=== PATIENT | male | born 1930 | race Caucasian/White ===

== ENCOUNTER 2016-08-23 13:19 | Emergency (ER) | payer MEDICARE, OTHER ==
[~2016-08-23] VITALS: Ht 182.9 cm; Wt 113.6 kg
[~2016-08-23 13:19] MED LIST: ACIDOPHILIS PO; AMITRIPTYLINE H25 M1 PO; AMITRIPTYLINE25 MG PO; ASPI325T6 PO; ASPIR-LOW81 MG PO; ASPIRIN 32325 MG/TAB PO; ASPIRIN 81M81 MG/TA2 PO; ATARAX50 MG PO; BENAZEPRIL; BENAZEPRIL40 MG PO; BIAXIN 500MG T500 MG PO; CARAFATE 1GM1 G PO; CARDIZEM CD360 MG PO; CEPHALEXIN500 M1 PO; CLINDAMYCIN300 MG PO; DILTIAZEM180 M1 PO; FERRATE325 MG PO; FLAGYL500 MG PO; FLONASE NASAL S16 GM NS; FUROSEMIDE20 MG PO; GLIPIZIDE10 MG PO; GLIPIZIDE5 M1 PO; GLUCOPHAGE XR500 M1 PO; GLUCOTROL10 MG PO; GOOD NEIGHBOR325 MG PO; HTN MED; HYTRIN 5MG C5 MG/CAP PO; INTESTINEX1 CA1 PO; LASIX 20MG TABL20 MG PO; LASIX 40MG TABL40 MG PO; LOTENSIN40 MG PO; METAMUCIL FIBE1 EACH PO; METAMUCIL0.52 GM PO; MYCOSTATIN100000 U/G TP; NEXIUM 40MG40 MG PO; NORCO 325 MG-51 TAB PO; OLIVE LEAF EXT500 MG PO; PLAVIX 75MG TAB75 MG PO; PREDNISONE20 MG PO; PRILOSEC 20MG20 MG PO; PSYLLIUM HUSK1 CAP PO; SIMVASTATIN20 MG PO; TERAZOSIN5 MG PO; ULTRAM 50MG TAB50 MG PO; UNABLE; VITAMIN A10k PO; XARELTO15 MG PO; XARELTO20 MG PO; ZOCOR 20MG20 MG PO; ZOCOR10 MG PO; [UNRECOGNIZED DRUG - CODE] PO; [UNRECOGNIZED DRUG - OTHER] TOP
[2016-08-23 13:22] VITALS: TEMP 97.4
[2016-08-23 14:01] LABS: BASO % 0.6 % (0.0-2.0); EOS # 0.6 (0.0-0.7); GRAN # 3.8 (1.4-6.5); GRAN % 54.8 % (42.2-75.2); MEAN CELL VOLUME 90 fl (80.0-100.0); MEAN CORPUSCULAR HGB CONC 32 g/dl (33.0-37.0); MEAN PLATELET VOLUME 9.6 fl (7.4-10.4); MONO # 0.5 (0.1-0.6); PLATELET COUNT 240 K/mm3 (130-400); RED BLOOD COUNT 3.86 M/mm3 (4.20-5.60); REDCELL DISTRIBUTION WIDTH-CV 14.1 % (11.5-14.5); WHITE BLOOD COUNT 6.9 K/mm3 (4.8-10.8)
[2016-08-23 14:03] LABS: HEMATOCRIT 34.8 % (42.0-52.0); HEMOGLOBIN 11.2 g/dl (13.5-18.0); MEAN CORPUSCULAR HEMOGLOBIN 29 pg (27.0-31.0)
[2016-08-23 14:08] LABS: ANION GAP 14 mmol/L (7-16); BLOOD UREA NITROGEN 23 mg/dL (9-20); CALCIUM 9.3 mg/dL (8.4-10.2); CARBON DIOXIDE 21 mmol/L (22-30); CHLORIDE 105 mmol/L (98-107); CREATININE, serum 1.59 mg/dL (0.66-1.25); GLUCOSE 234 mg/dL (74-106); POTASSIUM 4.2 mmol/L (3.4-5.0); SODIUM 140 mmol/L (137-145)
[2016-08-23 14:28] LABS: TROPONIN-I < 0.012 ng/mL (0.000-0.034)
[2016-08-23] MEDS ORDERED: ULTRAM 50MG TAB50 MG PO (15:16)
[2016-08-23 15:23] VITALS: BP 169/84; PULSE 64
== END 2016-08-23 15:55 | disposition home or self-care (01) ==
LOC: COL.ER 13:19
PROVIDERS: Emergency Medicine
DX: M25.521 Pain in right elbow (principal); M79.631 Pain in right forearm; M25.561 Pain in right knee; S51.811A Laceration without foreign body of right forearm, initial encounter; S51.011A Laceration without foreign body of right elbow, initial encounter; W01.198A Fall on same level from slipping, tripping and stumbling with subsequent striking against other object, initial encounter; Y92.009 Unspecified place in unspecified non-institutional (private) residence as the place of occurrence of the external cause; R42 Dizziness and giddiness; Z86.73 Personal history of transient ischemic attack (TIA), and cerebral infarction without residual deficits; D64.9 Anemia, unspecified; Z79.02 Long term (current) use of antithrombotics/antiplatelets; Z86.718 Personal history of other venous thrombosis and embolism; N40.0 Benign prostatic hyperplasia without lower urinary tract symptoms; Z86.711 Personal history of pulmonary embolism; F32.9 Major depressive disorder, single episode, unspecified
CPT/HCPCS: J1885; J7030; L1830

== ENCOUNTER 2016-08-27 13:12 | Inpatient (IN) | payer MEDICARE, OTHER ==
[~2016-08-27] VITALS: Ht 188 cm; Wt 127.0 kg
[2016-08-27 14:35] LABS: BASO % 0.3 % (0.0-2.0); EOS # 0.4 (0.0-0.7); EOS % 3.6 % (0-4.0); GRAN # 8.5 (1.4-6.5); GRAN % 75.5 % (42.2-75.2); LYMPH # 1.5 (1.2-3.4); LYMPH % 13.5 % (20.0-51.0); MEAN CELL VOLUME 91 fl (80.0-100.0); MEAN CORPUSCULAR HGB CONC 32 g/dl (33.0-37.0); MEAN PLATELET VOLUME 10.3 fl (7.4-10.4); MONO # 0.7 (0.1-0.6); MONO % 6.5 % (1.7-9.3); PLATELET COUNT 257 K/mm3 (130-400); RED BLOOD COUNT 3.34 M/mm3 (4.20-5.60); REDCELL DISTRIBUTION WIDTH-CV 14.7 % (11.5-14.5); WHITE BLOOD COUNT 11.2 K/mm3 (4.8-10.8)
[2016-08-27 14:37] LABS: HEMATOCRIT 30.4 % (42.0-52.0); HEMOGLOBIN 9.8 g/dl (13.5-18.0); MEAN CORPUSCULAR HEMOGLOBIN 29 pg (27.0-31.0)
[2016-08-27 14:39] LABS: INR 1.3 (0.8-3.0); PROTHROMBIN TIME 14.2 SECONDS (9.7-12.8)
[2016-08-27 14:41] LABS: PARTIAL THROMBOPLASTIN TIME 36.6 SECONDS (26.0-37.0)
[2016-08-27 14:52] LABS: PH 5 (5-8); SQUAMOUS EPITHELIAL 0-2 /hpf; URINE APPEARANCE Clear; URINE BACTERIA Rare /hpf; URINE BILIRUBIN Negative (NEGATIVE); URINE BLOOD Negative (NEGATIVE); URINE COLOR Yellow; URINE GLUCOSE Negative (NEGATIVE); URINE KETONE Negative (NEGATIVE); URINE UROBILINOGEN Negative (NEGATIVE)
[2016-08-27 14:53] LABS: URINE WBC >50 /hpf
[2016-08-27 14:55] LABS: ADJUSTED CALCIUM 9.8 mg/dL (8.4-10.2); ALBUMIN 3.4 gm/dL (3.5-5.0); BILIRUBIN,TOTAL 0.7 mg/dL (0.0-1.0); CALCIUM 9.3 mg/dL (8.4-10.2); CREATININE, serum 3.34 mg/dL (0.66-1.25); POTASSIUM 4.6 mmol/L (3.4-5.0); TOTAL PROTEIN 6.8 gm/dL (6.4-8.2)
[2016-08-27 15:02] LABS: TROPONIN-I 0.029 ng/mL (0.000-0.034)
[2016-08-27 15:09] LABS: C-REACTIVE PROTEIN 18.7 mg/dL (0.0-0.9)
[2016-08-27 17:22] VITALS: BP 140/56; PULSE 87
[2016-08-27 22:15] VITALS: BP 97/58; PULSE 84; TEMP 98.4
[2016-08-28 02:06] VITALS: BP 115/44; PULSE 85; TEMP 98.4
[2016-08-28] MEDS ORDERED: GLUCOPHAGE500 MG/TAB PO ×2 (03:01→03:02)
[2016-08-28] MEDS ORDERED: HYTRIN10 M1 PO (03:01)
[2016-08-28] MEDS ORDERED: LOTENSIN40 MG PO (03:06)
[2016-08-28] MEDS ORDERED: IRON325 MG PO (03:07)
[2016-08-28 04:37] VITALS: BP 125/45; PULSE 76; TEMP 97.9
[2016-08-28 07:58] LABS: BASO % 0.3 % (0.0-2.0); EOS # 0.5 (0.0-0.7); EOS % 4.7 % (0-4.0); GRAN # 6.6 (1.4-6.5); GRAN % 66.5 % (42.2-75.2); LYMPH # 1.9 (1.2-3.4); LYMPH % 19.3 % (20.0-51.0); MEAN CELL VOLUME 93 fl (80.0-100.0); MEAN CORPUSCULAR HGB CONC 32 g/dl (33.0-37.0); MEAN PLATELET VOLUME 10.5 fl (7.4-10.4); MONO # 0.9 (0.1-0.6); MONO % 8.8 % (1.7-9.3); PLATELET COUNT 257 K/mm3 (130-400); RED BLOOD COUNT 3.06 M/mm3 (4.20-5.60); REDCELL DISTRIBUTION WIDTH-CV 14.6 % (11.5-14.5); WHITE BLOOD COUNT 9.9 K/mm3 (4.8-10.8)
[2016-08-28 07:59] LABS: HEMATOCRIT 28.4 % (42.0-52.0); MEAN CORPUSCULAR HEMOGLOBIN 29 pg (27.0-31.0)
[2016-08-28 08:14] LABS: CALCIUM 8.7 mg/dL (8.4-10.2); CREATININE, serum 2.48 mg/dL (0.66-1.25); POTASSIUM 4.1 mmol/L (3.4-5.0)
[2016-08-28 09:36] VITALS: BP 102/42; BP 116/26; PULSE 82; TEMP 98.5
[2016-08-28 13:47] VITALS: BP 127/42; PULSE 66; TEMP 97.8
[2016-08-28 17:53] VITALS: BP 103/85; PULSE 95; TEMP 97.8
[2016-08-28 18:42] LABS: TROPONIN-I 0.045 ng/mL (0.000-0.034)
[2016-08-28 20:39] VITALS: BP 141/55; PULSE 83; TEMP 99.3
[2016-08-28 23:29] LABS: INR 1.3 (0.8-3.0); PROTHROMBIN TIME 14.2 SECONDS (9.7-12.8)
[2016-08-28 23:32] LABS: PARTIAL THROMBOPLASTIN TIME 31.9 SECONDS (26.0-37.0)
[2016-08-29] VITALS (292 sets, daily range): BP systolic 105–145; BP diastolic 41–84; PULSE 73–129; TEMP 97.2–99.4; O2SAT 69–100
[2016-08-29 06:22] LABS: BASO # 0.1 (0.0-0.2); BASO % 0.5 % (0.0-2.0); EOS # 0.3 (0.0-0.7); EOS % 3.6 % (0-4.0); GRAN # 6.3 (1.4-6.5); GRAN % 68.3 % (42.2-75.2); LYMPH # 1.7 (1.2-3.4); LYMPH % 18.4 % (20.0-51.0); MEAN CELL VOLUME 92 fl (80.0-100.0); MEAN CORPUSCULAR HGB CONC 32 g/dl (33.0-37.0); MEAN PLATELET VOLUME 10.2 fl (7.4-10.4); MONO # 0.8 (0.1-0.6); MONO % 8.5 % (1.7-9.3); PLATELET COUNT 254 K/mm3 (130-400); RED BLOOD COUNT 3.06 M/mm3 (4.20-5.60); REDCELL DISTRIBUTION WIDTH-CV 14.5 % (11.5-14.5); WHITE BLOOD COUNT 9.2 K/mm3 (4.8-10.8)
[2016-08-29 06:26] LABS: HEMATOCRIT 28.1 % (42.0-52.0); HEMOGLOBIN 8.9 g/dl (13.5-18.0); MEAN CORPUSCULAR HEMOGLOBIN 29 pg (27.0-31.0)
[2016-08-29 06:42] LABS: CALCIUM 9.1 mg/dL (8.4-10.2); CREATININE, serum 1.89 mg/dL (0.66-1.25); POTASSIUM 4.4 mmol/L (3.4-5.0)
[2016-08-29 17:57] LABS: ADJUSTED CALCIUM 9.9 mg/dL (8.4-10.2); ALBUMIN 2.6 gm/dL (3.5-5.0); BILIRUBIN,TOTAL 0.5 mg/dL (0.0-1.0); CALCIUM 8.8 mg/dL (8.4-10.2); CREATININE, serum 1.63 mg/dL (0.66-1.25); MAGNESIUM 1.9 mg/dL (1.6-2.3); PHOSPHOROUS 3.4 mg/dL (2.5-4.5); POTASSIUM 4.4 mmol/L (3.4-5.0); TOTAL PROTEIN 5.7 gm/dL (6.4-8.2)
[2016-08-30] VITALS (788 sets, daily range): BP systolic 112–175; BP diastolic 41–69; PULSE 65–94; TEMP 97.2–98.9; O2SAT 62–100
[2016-08-30 05:59] LABS: MEAN CELL VOLUME 93 fl (80.0-100.0); MEAN CORPUSCULAR HGB CONC 31 g/dl (33.0-37.0); MEAN PLATELET VOLUME 10.2 fl (7.4-10.4); PLATELET COUNT 254 K/mm3 (130-400); RED BLOOD COUNT 2.92 M/mm3 (4.20-5.60); REDCELL DISTRIBUTION WIDTH-CV 14.3 % (11.5-14.5); WHITE BLOOD COUNT 9.2 K/mm3 (4.8-10.8)
[2016-08-30 06:02] LABS: HEMATOCRIT 27.2 % (42.0-52.0); HEMOGLOBIN 8.5 g/dl (13.5-18.0); MEAN CORPUSCULAR HEMOGLOBIN 29 pg (27.0-31.0)
[2016-08-30 06:11] LABS: CALCIUM 8.9 mg/dL (8.4-10.2); CREATININE, serum 1.56 mg/dL (0.66-1.25); POTASSIUM 4.1 mmol/L (3.4-5.0)
[2016-08-30 14:48] LABS: INR 1.3 (0.8-3.0); PROTHROMBIN TIME 14.4 SECONDS (9.7-12.8)
[2016-08-31] VITALS (11 sets, daily range): BP systolic 116–144; BP diastolic 38–61; PULSE 63–108; TEMP 97.3–98.9
[2016-08-31 06:39] LABS: BASO % 0.4 % (0.0-2.0); EOS # 0.4 (0.0-0.7); EOS % 4.3 % (0-4.0); GRAN # 5.6 (1.4-6.5); GRAN % 66.7 % (42.2-75.2); LYMPH # 1.6 (1.2-3.4); LYMPH % 18.8 % (20.0-51.0); MEAN CELL VOLUME 92 fl (80.0-100.0); MEAN CORPUSCULAR HGB CONC 31 g/dl (33.0-37.0); MEAN PLATELET VOLUME 9.8 fl (7.4-10.4); MONO # 0.8 (0.1-0.6); MONO % 9.1 % (1.7-9.3); PLATELET COUNT 238 K/mm3 (130-400); RED BLOOD COUNT 2.56 M/mm3 (4.20-5.60); REDCELL DISTRIBUTION WIDTH-CV 14.5 % (11.5-14.5); WHITE BLOOD COUNT 8.4 K/mm3 (4.8-10.8)
[2016-08-31 06:44] LABS: HEMATOCRIT 23.6 % (42.0-52.0); HEMOGLOBIN 7.4 g/dl (13.5-18.0); MEAN CORPUSCULAR HEMOGLOBIN 29 pg (27.0-31.0)
[2016-08-31 06:45] LABS: INR 1.4 (0.8-3.0); PROTHROMBIN TIME 15.7 SECONDS (9.7-12.8)
[2016-08-31 06:50] LABS: CALCIUM 8.7 mg/dL (8.4-10.2); CREATININE, serum 1.63 mg/dL (0.66-1.25)
[2016-08-31 20:42] LABS: HEMATOCRIT 25.5 % (42.0-52.0); HEMOGLOBIN 8.3 g/dl (13.5-18.0)
[2016-09-01 00:14] VITALS: BP 114/70; PULSE 64; TEMP 98.3
[2016-09-01 04:07] VITALS: BP 124/39; PULSE 62; TEMP 98
[2016-09-01] MEDS ORDERED: FERROUS SU325 MG/TAB PO (07:44)
[2016-09-01] MEDS ORDERED: ASPI325T6 PO (07:46)
[2016-09-01] MEDS ORDERED: SENOKOT S 50 MG1 TAB PO (07:48)
[2016-09-01] MEDS ORDERED: MILK OF MA400 MG/52 PO (07:49)
[2016-09-01] MEDS ORDERED: DULCOLAX S10 MG/SUPP RC (07:49)
[2016-09-01] MEDS ORDERED: NORCO 325 MG-51 TAB PO (07:50)
[2016-09-01] MEDS ORDERED: ULTRAM 50MG TAB50 MG PO (07:50)
[2016-09-01 08:03] LABS: BASO % 0.4 % (0.0-2.0); EOS # 0.8 (0.0-0.7); EOS % 8.1 % (0-4.0); GRAN # 6.4 (1.4-6.5); GRAN % 61.4 % (42.2-75.2); LYMPH # 2.1 (1.2-3.4); LYMPH % 20.2 % (20.0-51.0); MEAN CELL VOLUME 91 fl (80.0-100.0); MEAN CORPUSCULAR HGB CONC 31 g/dl (33.0-37.0); MEAN PLATELET VOLUME 10.1 fl (7.4-10.4); MONO # 0.9 (0.1-0.6); MONO % 9.1 % (1.7-9.3); PLATELET COUNT 269 K/mm3 (130-400); RED BLOOD COUNT 2.96 M/mm3 (4.20-5.60); REDCELL DISTRIBUTION WIDTH-CV 15.9 % (11.5-14.5); WHITE BLOOD COUNT 10.4 K/mm3 (4.8-10.8)
[2016-09-01 08:05] LABS: INR 1.3 (0.8-3.0); PROTHROMBIN TIME 14.6 SECONDS (9.7-12.8)
[2016-09-01 08:10] LABS: HEMOGLOBIN 8.4 g/dl (13.5-18.0); MEAN CORPUSCULAR HEMOGLOBIN 28 pg (27.0-31.0)
[2016-09-01 08:13] LABS: CALCIUM 8.9 mg/dL (8.4-10.2); CREATININE, serum 1.73 mg/dL (0.66-1.25); POTASSIUM 3.5 mmol/L (3.4-5.0)
[2016-09-01 10:25] VITALS: BP 125/93; PULSE 73; TEMP 98.5
[2016-09-01 13:04] VITALS: BP 125/93; PULSE 73; TEMP 98.5
== END 2016-09-01 13:15 | DRG 480 ==
LOC: COL.ER 13:12 → SURG 16:30 → ICU 08-29 17:22 → SURG 08-30 15:13
PROVIDERS: Emergency Medicine; Family Medicine; Internal Medicine Interventional Cardiology; Orthopaedic Surgery Sports Medicine; Physician Assistant
PROC: 0QS606Z Reposition Right Upper Femur with Intramedullary Internal Fixation Device, Open Approach (ICD-10-PCS; principal; 2016-08-29 14:30)
DX: S72.141A Displaced intertrochanteric fracture of right femur, initial encounter for closed fracture (principal); I50.33 Acute on chronic diastolic (congestive) heart failure; A41.51 Sepsis due to Escherichia coli [E. coli]; N17.9 Acute kidney failure, unspecified; N39.0 Urinary tract infection, site not specified; W18.30XA Fall on same level, unspecified, initial encounter; E11.9 Type 2 diabetes mellitus without complications; I11.0 Hypertensive heart disease with heart failure; B96.20 Unspecified Escherichia coli [E. coli] as the cause of diseases classified elsewhere; Z86.711 Personal history of pulmonary embolism; Z79.01 Long term (current) use of anticoagulants; I87.8 Other specified disorders of veins
CPT/HCPCS: 99223-AI; 99233-AI; 99239; A9284; A9502; C1713; J0690; J0696; J1644; J1650; J1815; J1940; J2001; J2250; J2270; J2405; J3010; J7030; P9016

== ENCOUNTER 2016-09-03 09:09 | Emergency (ER) | payer MEDICARE, OTHER ==
[~2016-09-03] VITALS: Ht 193 cm; Wt 124.5 kg
[~2016-09-03 09:09] MED LIST changes: +DULCOLAX S10 MG/SUPP RC; +FERROUS SU325 MG/TAB PO; +GLUCOPHAGE500 MG/TAB PO; +HYTRIN10 M1 PO; +IRON325 MG PO; +MILK OF MA400 MG/52 PO; +SENOKOT S 50 MG1 TAB PO
[2016-09-03 09:31] LABS: ARTERIAL BLD GAS O2 SATURATION 93.2 % (92-100); ARTERIAL BLD GAS TCO2 CT 19.2; ARTERIAL BLOOD GAS BASE EXCESS -5.8 (-2-2); ARTERIAL BLOOD GAS HCO3 18.3 meq/L (22-26); ARTERIAL BLOOD GAS PHT 7.39 C (7.35-7.45); ARTERIAL BLOOD GAS PO2 73.2 mmHg (80-100); ARTERIAL BLOOD GAS PO2T 73.2 (80-100); ARTERIAL BLOOD GAS pH 7.39 (7.35-7.45); OXYHEMOGLOBIN 91.9 %
[2016-09-03 09:33] LABS: ALLEN TEST YES; ALLENS TEST RESULT PASS; ATS? YES
[2016-09-03 09:45] LABS: BASO # 0.1 (0.0-0.2); BASO % 0.4 % (0.0-2.0); EOS # 0.9 (0.0-0.7); EOS % 7.6 % (0-4.0); GRAN # 7.9 (1.4-6.5); GRAN % 65.5 % (42.2-75.2); HEMATOCRIT 28.5 % (42.0-52.0); HEMOGLOBIN 9.2 g/dl (13.5-18.0); LYMPH # 2.2 (1.2-3.4); LYMPH % 18.5 % (20.0-51.0); MEAN CELL VOLUME 90 fl (80.0-100.0); MEAN CORPUSCULAR HEMOGLOBIN 29 pg (27.0-31.0); MEAN CORPUSCULAR HGB CONC 32 g/dl (33.0-37.0); MONO # 0.9 (0.1-0.6); MONO % 7.1 % (1.7-9.3); PLATELET COUNT 369 K/mm3 (130-400); RED BLOOD COUNT 3.16 M/mm3 (4.20-5.60); REDCELL DISTRIBUTION WIDTH-CV 15.3 % (11.5-14.5); WHITE BLOOD COUNT 12.1 K/mm3 (4.8-10.8)
[2016-09-03 09:46] LABS: INR 1.3 (0.8-3.0)
[2016-09-03 09:49] LABS: ADJUSTED CALCIUM 10.1 mg/dL (8.4-10.2); ALBUMIN 2.8 gm/dL (3.5-5.0); BILIRUBIN,TOTAL 0.6 mg/dL (0.0-1.0); CALCIUM 9.1 mg/dL (8.4-10.2); CREATININE, serum 1.5 mg/dL (0.66-1.25); PARTIAL THROMBOPLASTIN TIME 30.6 SECONDS (26.0-37.0); POTASSIUM 3.3 mmol/L (3.4-5.0); TOTAL PROTEIN 6.2 gm/dL (6.4-8.2)
[2016-09-03 10:07] LABS: TROPONIN-I 0.041 ng/mL (0.000-0.034)
[2016-09-03 13:54] VITALS: BP 119/77; PULSE 74
== END 2016-09-03 11:57 | disposition home or self-care (01) ==
LOC: COL.ER 09:09
PROVIDERS: Family Medicine
DX: R06.00 Dyspnea, unspecified (principal); I10 Essential (primary) hypertension; Z86.718 Personal history of other venous thrombosis and embolism; Z86.711 Personal history of pulmonary embolism; Z87.891 Personal history of nicotine dependence; Z79.02 Long term (current) use of antithrombotics/antiplatelets

== ENCOUNTER → 2016-09-09 | Outpatient (CLI) | payer MEDICARE, OTHER | LOC: COL.RAD 10:55 | DX: T17.900A Unspecified foreign body in respiratory tract, part unspecified causing asphyxiation, initial encounter (principal); R13.10 Dysphagia, unspecified; G31.9 Degenerative disease of nervous system, unspecified; J34.89 Other specified disorders of nose and nasal sinuses | CPT/HCPCS: G8996-GN; G8997-GN; G8998-GN ==

== ENCOUNTER → 2016-09-19 | Outpatient (CLI) | payer MEDICARE, OTHER | LOC: COL.RAD 15:30 | DX: M48.07 Spinal stenosis, lumbosacral region (principal); W19.XXXA Unspecified fall, initial encounter; M47.816 Spondylosis without myelopathy or radiculopathy, lumbar region; M43.8X4 Other specified deforming dorsopathies, thoracic region ==

== ENCOUNTER → 2016-10-10 | Outpatient (CLI) | payer MEDICARE, OTHER | LOC: COL.RAD 10:24 | DX: Z09 Encounter for follow-up examination after completed treatment for conditions other than malignant neoplasm (principal); S72.91XD Unspecified fracture of right femur, subsequent encounter for closed fracture with routine healing; Z98.1 Arthrodesis status ==

== ENCOUNTER → 2016-10-11 | Outpatient (REF) ==
[2016-10-11 13:46] LABS: PH 5 (5-8); SQUAMOUS EPITHELIAL None Seen /hpf; URINE APPEARANCE Hazy; URINE BACTERIA Occasional /hpf; URINE BILIRUBIN Negative (NEGATIVE); URINE BLOOD Negative (NEGATIVE); URINE COLOR Yellow; URINE GLUCOSE Negative (NEGATIVE); URINE KETONE Negative (NEGATIVE); URINE RBC 0-2 /hpf; URINE WBC None Seen /hpf
== END ==
LOC: ZCOL.LAB 13:19
PROVIDERS: Family Medicine
DX: Z01.89 Encounter for other specified special examinations (principal)

== ENCOUNTER → 2017-01-20 | Outpatient (CLI) | payer MEDICARE, OTHER ==
[~2017-01-20] MED LIST changes: +CELEBREX 200MG200 MG PO; +IPRATROPIUM BROM3 M1 IH; +LEVAQUIN 750MG750 M1 PO; +LIDODERM 5% PATC1 EA TD; +OMNICEF 300MG300 MG PO; +TYLENOL 325MG325 MG PO
== END ==
LOC: COL.RAD 14:40
DX: R13.12 Dysphagia, oropharyngeal phase (principal); J18.8 Other pneumonia, unspecified organism
CPT/HCPCS: G8996-GN; G8997-GN; G8998-GN

== ENCOUNTER → 2017-01-27 | Outpatient (CLI) | payer MEDICARE, OTHER | LOC: COL.RAD 10:46 | DX: J18.1 Lobar pneumonia, unspecified organism (principal); R13.12 Dysphagia, oropharyngeal phase ==

== ENCOUNTER 2019-02-28 12:40 | Inpatient (IN) | payer MEDICARE, OTHER ==
[~2019-02-28] VITALS: Wt 112.5 kg
[2019-02-28 13:27] LABS: BASO # 0.1 (0.0-0.2); BASO % 0.3 % (0.0-2.0); EOS % 0.1 % (0-4.0); GRAN # 16.4 (1.4-6.5); GRAN % 91.6 % (42.2-75.2); HEMATOCRIT 37.8 % (42.0-52.0); HEMOGLOBIN 11.8 g/dl (13.5-18.0); LYMPH # 0.4 (1.2-3.4); LYMPH % 2.2 % (20.0-51.0); MEAN CELL VOLUME 95 fl (80.0-100.0); MEAN CORPUSCULAR HEMOGLOBIN 30 pg (27.0-31.0); MEAN CORPUSCULAR HGB CONC 31 g/dl (33.0-37.0); MEAN PLATELET VOLUME 9.7 fl (7.4-10.4); MONO # 0.9 (0.1-0.6); MONO % 4.9 % (1.7-9.3); PLATELET COUNT 247 K/mm3 (130-400); RED BLOOD COUNT 3.97 M/mm3 (4.20-5.60); REDCELL DISTRIBUTION WIDTH-CV 14.1 % (11.5-14.5)
[2019-02-28 13:36] LABS: INR 1.1 (0.8-3.0); PROTHROMBIN TIME 12.7 SECONDS (9.7-12.8)
[2019-02-28 13:54] LABS: ALBUMIN 4.1 gm/dL (3.5-5.0); BILIRUBIN,TOTAL 0.3 mg/dL (0.0-1.0); C-REACTIVE PROTEIN 3.7 mg/dL (0.0-0.9); CALCIUM 9.1 mg/dL (8.4-10.2); CREATININE, serum 2.41 (0.66-1.25); POTASSIUM 5.2 mmol/L (3.4-5.0); TOTAL PROTEIN 7.7 gm/dL (6.4-8.2)
[2019-02-28 14:03] LABS: TROPONIN-I 0.032 ng/mL (0.000-0.035)
[2019-02-28] MEDS ORDERED: TYLENOL 8 HR PO (14:36)
[2019-02-28] MEDS ORDERED: LOTENSIN40 MG PO (14:38)
[2019-02-28] MEDS ORDERED: BENEFIBER PO (14:41)
[2019-02-28] MEDS ORDERED: HYGROTON 2525 MG/TAB PO (14:43)
[2019-02-28] MEDS ORDERED: DIGESTIVE PROB1 EACH PO (14:50)
[2019-02-28 16:17] LABS: COLLECTION METHOD CLEAN CATCH
[2019-02-28 16:27] LABS: MUCOUS Present /lpf; PH 5 (5-8); SQUAMOUS EPITHELIAL 0-2 /hpf; URINE APPEARANCE Cloudy; URINE BACTERIA Rare /hpf; URINE BILIRUBIN Negative (NEGATIVE); URINE BLOOD 3+ (NEGATIVE); URINE COLOR Yellow; URINE GLUCOSE Negative (NEGATIVE); URINE KETONE Trace (NEGATIVE); URINE LEUKOCYTE ESTERASE 3+ (NEGATIVE); URINE NITRATE Negative (NEGATIVE); URINE PROTEIN(semi-quant) 1+ (NEGATIVE); URINE RBC >50 /hpf; URINE UROBILINOGEN Negative (NEGATIVE)
[2019-02-28 17:55] VITALS: BP 155/49; PULSE 99; TEMP 101.6
[2019-02-28] MEDS ORDERED: COLACE 100100 MG/CAP PO (17:58)
--- NOTE | 2019-02-28 18:00 | NUR ---
PT ADMITTED TO FLOOR AT THIS TIME. ASSISTED TO BED. HAD NOTED NAUSEA AND EMISIS, OBTIANTED PRN ORDER FROM . WILL ADMINSITER UPON MED VARIFICATION
[2019-02-28] MEDS ORDERED: APRESOLINE 25MG25 MG PO (18:02)
[2019-02-28] MEDS ORDERED: ATROVENT NASAL15 ML NS (18:04)
[2019-02-28] MEDS ORDERED: ATROVENT I0.2 MG/1 M IH (18:05)
[2019-02-28] MEDS ORDERED: JANUVIA50 MG PO (18:06)
[2019-02-28] MEDS ORDERED: TIROSINT50 MC1 PO (18:07)
[2019-02-28] MEDS ORDERED: IMODIUM 2MG CAPS2 MG PO (18:08)
[2019-02-28] MEDS ORDERED: MELATONIN5 M1 SL (18:09)
[2019-02-28] MEDS ORDERED: CLARITIN 1010 MG/TAB PO (18:09)
[2019-02-28] MEDS ORDERED: GOOD SENSE400 MG/5 M PO (18:11)
[2019-02-28] MEDS ORDERED: SINGULAIR 110 MG/TAB PO (18:12)
[2019-02-28] MEDS ORDERED: PATANOL OPHTHALM5 ML OU (18:14)
[2019-02-28] MEDS ORDERED: PRILOTC PO (18:15)
[2019-02-28] MEDS ORDERED: FLOMAX 0.40.4 MG/CAP PO (18:16)
[2019-02-28] MEDS ORDERED: HYTRIN10 M1 PO (18:17)
[2019-02-28] MEDS ORDERED: VITAMIN A10k PO (18:18)
[2019-02-28] MEDS ORDERED: SENOKOT S 50 MG1 TAB PO (18:27)
--- NOTE | 2019-02-28 18:40 | NUR ---
ZOFRAN ADMINISTERED AT THIS TIME, EMISIS HAS RESOLVED AT THIS TIME. MEDICAL RECORD CLERK CALLED THIS NURSE ABOUT PT CHANGING FROM [facility] TO A-FIB. WILL CALL PROVIDER. PT DOESNT VOICE THAT HE FEELS ANY CHANGES, VITALS WILL BE OBTAINED WELL
[2019-02-28] MEDS ORDERED: ACIDOPHILIS PO (18:54)
[2019-02-28] MEDS ORDERED: SALINE 45 ML45 ML NS (18:56)
[2019-02-28 19:15] VITALS: BP 108/78; PULSE 94; TEMP 100.4
[2019-02-28 23:26] VITALS: BP 135/60; PULSE 91; TEMP 100.7
[2019-03-01 03:54] VITALS: BP 112/51; PULSE 119; TEMP 100.6
[2019-03-01 05:56] LABS: BASO % 0.2 % (0.0-2.0); GRAN # 15.1 (1.4-6.5); GRAN % 87.6 % (42.2-75.2); LYMPH # 1.1 (1.2-3.4); LYMPH % 6.3 % (20.0-51.0); MEAN CELL VOLUME 96 fl (80.0-100.0); MEAN CORPUSCULAR HGB CONC 31 g/dl (33.0-37.0); MEAN PLATELET VOLUME 9.7 fl (7.4-10.4); MONO # 0.9 (0.1-0.6); MONO % 5.4 % (1.7-9.3); PLATELET COUNT 201 K/mm3 (130-400); RED BLOOD COUNT 3.34 M/mm3 (4.20-5.60); REDCELL DISTRIBUTION WIDTH-CV 14.5 % (11.5-14.5)
[2019-03-01 05:58] LABS: HEMATOCRIT 32.2 % (42.0-52.0); HEMOGLOBIN 9.9 g/dl (13.5-18.0); INR 1.5 (0.8-3.0); MEAN CORPUSCULAR HEMOGLOBIN 30 pg (27.0-31.0); PROTHROMBIN TIME 17.8 SECONDS (9.7-12.8)
[2019-03-01 06:06] LABS: ALBUMIN 3.4 gm/dL (3.5-5.0); BILIRUBIN,TOTAL 0.3 mg/dL (0.0-1.0); CALCIUM 8.8 mg/dL (8.4-10.2); CREATININE, serum 2.38 (0.66-1.25); POTASSIUM 5.2 mmol/L (3.4-5.0); TOTAL PROTEIN 6.6 gm/dL (6.4-8.2)
[2019-03-01 06:20] LABS: TROPONIN-I 0.075 ng/mL (0.000-0.035)
--- NOTE | 2019-03-01 07:33 | NUR ---
HepXa level 0.53, No rate/dose change, recheck next level at 1200
[2019-03-01 08:39] VITALS: BP 142/45; PULSE 97; TEMP 99.6
--- NOTE | 2019-03-01 10:16 | NUR ---
Talked with son Doyle Fuentes by phone. His phone number is [phone]. I also left a message for Brandon Fuentes at [phone]. Doyle did advise me that Yolie Fuentes is no longer DPOA-HC as they have been for 2 years and she is not involved in his father's care anymore. Doyle reports that "UTI'S make Dad not aware of anything for a while but historically, he does come out of it and is functioning fairly well at [facility] until now. He is aware of his father's health situation but wants to provide supportive care to him to allow recovery is possible--which he feels is realistic. Either Doyle or Brandon can be contacted for medical decisions and per Doyle, both are thinking along the same lines for plan of care. I hilaria share this conversation with Dr Cornejo as he has just seen the patient and is supportive of their decision as well.
--- NOTE | 2019-03-01 10:29 | NUR ---
GERALDO attended clinical rounds. The patient is to have an ultrasound of his heart today. A palliative care consult was ordered. GERALDO then attempted to contact the patient's son, Doyle ([phone]), to discuss discharge plan. GERALDO left him a voicemail. The patient resides at [facility] for long-term care. GERALDO contacted Rosetta at [facility] to update and requested the patient's DPOA-HC and DNR. Rosetta faxed those documents to medical. GERALDO placed the copies in the patient's chart. The documents state that her son, Doyle, and Yolie are his DPOA-HC and the alternate is the patient's other son, Brandon (ph#[phone]). GERALDO contacted Yolie. Yolie reports that her and Doyle has been for two years. GERALDO then attempted to contact Brandon. GERALDO left him a voicemail. GERALDO then collaborated with Palliative Care Nurse, Magdalena, Magdalena was able to get a hold of the patient's son, Doyle. Doyle reports that they are not ready for hospice care and want everything done. GERALDO contacted Doyle again. Doyle reports that the plan is for the patient to return back to [facility]. GERALDO explained the Patient Choice Form to Doyle. Doyle gave GERALDO his verbal consent. Doyle reports that his brother should have an updated DPOA-HC that does not have Yolie on it. Doyle reports that he will ask his brother to fax it to the medical unit. GERALDO faxed updates to Rosetta at [facility] and will continue to follow.
[2019-03-01 12:11] VITALS: BP 137/65; PULSE 68; TEMP 98.5
--- NOTE | 2019-03-01 12:30 | NUR ---
HepXa 0.61 / no rate or dose change, continue TRA 20ml/hr, next level check 03/02/19 @ 0500
[2019-03-01 13:03] LABS: MAGNESIUM 2.2 mg/dL (1.6-2.3)
[2019-03-01 13:17] LABS: TROPONIN-I 0.067 ng/mL (0.000-0.035)
[2019-03-01 19:17] VITALS: BP 134/93; PULSE 71; TEMP 98.2
--- NOTE | 2019-03-01 21:00 | NUR ---
Patient awake watching TV. Vital signs stable, two IV sites in the left forearm, both clean, dry and intact. Antibiotics given as ordered. No complaints of pain.
[2019-03-01 23:05] VITALS: BP 117/88; PULSE 83; TEMP 98.5
[2019-03-02 04:00] VITALS: BP 125/66; PULSE 60; TEMP 984
[2019-03-02 06:16] LABS: BASO % 0.3 % (0.0-2.0); EOS # 0.3 (0.0-0.7); EOS % 2.5 % (0-4.0); GRAN # 8.6 (1.4-6.5); GRAN % 73.1 % (42.2-75.2); LYMPH # 1.8 (1.2-3.4); LYMPH % 15.4 % (20.0-51.0); MEAN CELL VOLUME 96 fl (80.0-100.0); MEAN CORPUSCULAR HGB CONC 31 g/dl (33.0-37.0); MEAN PLATELET VOLUME 9.9 fl (7.4-10.4); MONO # 0.9 (0.1-0.6); MONO % 7.7 % (1.7-9.3); PLATELET COUNT 183 K/mm3 (130-400); RED BLOOD COUNT 3.17 M/mm3 (4.20-5.60); REDCELL DISTRIBUTION WIDTH-CV 14.6 % (11.5-14.5)
[2019-03-02 06:22] LABS: HEMATOCRIT 30.4 % (42.0-52.0); HEMOGLOBIN 9.4 g/dl (13.5-18.0); MEAN CORPUSCULAR HEMOGLOBIN 30 pg (27.0-31.0)
[2019-03-02 06:28] LABS: INR 1.1 (0.8-3.0); PROTHROMBIN TIME 13.2 SECONDS (9.7-12.8)
[2019-03-02 06:39] LABS: ALBUMIN 3.1 gm/dL (3.5-5.0); BILIRUBIN,TOTAL 0.1 mg/dL (0.0-1.0); CALCIUM 8.6 mg/dL (8.4-10.2); CREATININE, serum 2.27 (0.66-1.25); POTASSIUM 4.6 mmol/L (3.4-5.0); TOTAL PROTEIN 6.3 gm/dL (6.4-8.2)
--- NOTE | 2019-03-02 07:22 | NUR ---
HepXa 0.69, no rate/dose change, continue TRA 20ml/hr, next recheck 03/03/18 @ 0500
[2019-03-02 09:05] VITALS: BP 147/56; PULSE 61; TEMP 98.6
--- NOTE | 2019-03-02 10:14 | NUR ---
Assessment completed, drowsy but arousable, alert/ disoriented but cooperative, denies pain, vital signs stable, dyspnea at rest/ helps to keep HOB elevated, lungs are diminished throuhgout, requiring 2-3L. o2 to maintain saturations >90%, heart irregular/ SR with PVC / Cardiology consulted, heparin gtt infusing per protocol, patient is very immobile, has very swollen/red scrotum and is very excoriated, incotinent cares and positiong changes every 2 hours, blood sugars being controlled, patient is not eating or drinking very much, will conitnue to monitor
--- NOTE | 2019-03-02 10:19 | NUR ---
Assessment completed, vital signs stable, patient is more alert/ partailly oriented today but forgetful, denies pain, his breathing is easier this morning, still on 2L. O2, lungs remain diminished, heart RRR/ PVC's on tele, stopping heparin gtt per cardiology recs and statred on SQ heparin dosing, he is feeling better today, ate a good breakfast, incontinent cares and bed linen changed, denies other needs at [facility]
[2019-03-02 13:03] VITALS: BP 147/61; PULSE 62; TEMP 98.4
[2019-03-02 18:03] VITALS: BP 155/71; PULSE 88; TEMP 98.7
--- NOTE | 2019-03-02 19:00 | NUR ---
REPORT RECEIVED FROM TABITHA MORSE; CARE OF PT ASSUMED AT THIS TIME. BEDSIDE ROUNDS COMPLETED, PT DENIES NEEDS. CALL LIGHT WITHIN REACH.
[2019-03-02 20:04] VITALS: BP 134/56; PULSE 62; TEMP 99
--- NOTE | 2019-03-02 20:30 | NUR ---
PT AWAKE, ALERT, OX2; REMAINS DISORIENTED REGARDING TIME. PT IS TALKATIVE AND FRIENDLY, [place]. PT DENIES SOB, PAIN. LS SLIGHTLY WHEEZY IN THE BASES, CURRENTLY ON RA. PT REPOSITIONED WITH PILLOW UNDER R HIP. OBESE ABDOMEN, ACTIVE BS. CALL LIGHT WITHIN REACH.
[2019-03-02 23:32] VITALS: BP 122/81; PULSE 74; TEMP 98.3
[2019-03-03 04:05] VITALS: BP 150/56; PULSE 70; TEMP 98.8
--- NOTE | 2019-03-03 05:58 | NUR ---
DANIAL HAS HAD A GOOD NIGHT, REMAINS CONFUSED SLIGHTLY PER HIS NORM, EASILY REORIENTS BRIEFLY. PT HAS SLEPT INTERMITTENTLY THROUGH THE NIGHT. BEING REPOSITIONED EVERY 2 HOURS FOR COMFORT. PT LS ARE WHEEZY IN BASES, NO COUGH NOTED. PT DENIES ANY PAIN OR OTHER CONCERNS. CALL LIGHT WITHIN REACH.
--- NOTE | 2019-03-03 07:05 | NUR ---
REPORT GIVEN TO TABITHA MORSE.
[2019-03-03 07:23] LABS: BASO % 0.2 % (0.0-2.0); EOS # 0.3 (0.0-0.7); EOS % 2.9 % (0-4.0); GRAN # 7.5 (1.4-6.5); GRAN % 77.2 % (42.2-75.2); LYMPH # 1.2 (1.2-3.4); LYMPH % 12.8 % (20.0-51.0); MEAN CELL VOLUME 96 fl (80.0-100.0); MEAN CORPUSCULAR HGB CONC 31 g/dl (33.0-37.0); MEAN PLATELET VOLUME 9.9 fl (7.4-10.4); MONO # 0.6 (0.1-0.6); MONO % 6.1 % (1.7-9.3); PLATELET COUNT 213 K/mm3 (130-400); RED BLOOD COUNT 3.32 M/mm3 (4.20-5.60); REDCELL DISTRIBUTION WIDTH-CV 14.3 % (11.5-14.5)
[2019-03-03 07:24] LABS: INR 1.1 (0.8-3.0); PROTHROMBIN TIME 12.8 SECONDS (9.7-12.8)
[2019-03-03 07:25] LABS: ALBUMIN 3.3 gm/dL (3.5-5.0); BILIRUBIN,TOTAL 0.1 mg/dL (0.0-1.0); CALCIUM 9.3 mg/dL (8.4-10.2); CREATININE, serum 1.91 (0.66-1.25); POTASSIUM 4.7 mmol/L (3.4-5.0); TOTAL PROTEIN 6.8 gm/dL (6.4-8.2)
[2019-03-03 07:27] LABS: HEMOGLOBIN 9.8 g/dl (13.5-18.0); MEAN CORPUSCULAR HEMOGLOBIN 30 pg (27.0-31.0)
[2019-03-03 08:22] VITALS: BP 142/57; PULSE 60; TEMP 99.4
--- NOTE | 2019-03-03 09:58 | NUR ---
Assessment completed, alert/ partially oriented, vital signs stable, denies pain, heart RRR, lungs diminished with some wheezing, still on 2L.o2, he is sitting up eating breakfast, will continue to monitor
[2019-03-03 11:16] VITALS: BP 146/61; PULSE 70; TEMP 98.5
--- NOTE | 2019-03-03 13:08 | NUR ---
The patient is to tentatively discharge back to [facility] tomorrow, 03/03. GERALDO notified and faxed updates to Rosetta at [facility]. GERALDO also contacted and updated the patient's son, Doyle. GERALDO explained the IM form to Doyle. Doyle gave GERALDO his verbal consent. GERALDO to continue to follow.
[2019-03-03 15:28] VITALS: BP 159/60; PULSE 68; TEMP 99.4
--- NOTE | 2019-03-03 19:35 | NUR ---
Seen patient awake on bed. No peripheral line noted as previous nurse indicated that he removed it. Patient denies any pain. Will try to reinsert IV line.
[2019-03-03 21:10] VITALS: BP 137/45; PULSE 55; TEMP 98.5
[2019-03-04 00:10] VITALS: BP 134/58; PULSE 58; TEMP 98.9
[2019-03-04 05:05] VITALS: BP 123/51; PULSE 77; TEMP 99.3
--- NOTE | 2019-03-04 05:19 | NUR ---
Changed patient's sheet, gown and briefs. Changed patient's position to left side. Denies any pain.
--- NOTE | 2019-03-04 05:55 | NUR ---
Patient's blood sugar is 69. Gave orange juice to patient.
[2019-03-04 07:04] LABS: BASO % 0.2 % (0.0-2.0); EOS # 0.3 (0.0-0.7); EOS % 2.9 % (0-4.0); GRAN % 71.6 % (42.2-75.2); LYMPH # 1.8 (1.2-3.4); LYMPH % 16.2 % (20.0-51.0); MEAN CELL VOLUME 95 fl (80.0-100.0); MEAN CORPUSCULAR HGB CONC 31 g/dl (33.0-37.0); MEAN PLATELET VOLUME 9.8 fl (7.4-10.4); MONO # 0.9 (0.1-0.6); MONO % 8.3 % (1.7-9.3); PLATELET COUNT 215 K/mm3 (130-400)
[2019-03-04 07:13] LABS: HEMATOCRIT 31.4 % (42.0-52.0); HEMOGLOBIN 9.8 g/dl (13.5-18.0); MEAN CORPUSCULAR HEMOGLOBIN 30 pg (27.0-31.0)
[2019-03-04 07:22] LABS: CALCIUM 9.4 mg/dL (8.4-10.2); CREATININE, serum 1.86 (0.66-1.25); POTASSIUM 4.2 mmol/L (3.4-5.0)
--- NOTE | 2019-03-04 08:00 | NUR ---
PATIENT IS OCCATIONALLY DROWSY, ORIENTED X2 WITH HX OF DEMENTIA. PATIENT IS PLEASANTLY CONFUSED. HE MAKES SMALL TALK WELL. VSS. NOTED TEMP OF 99.3. PATIENT DENIES PAIN OR ANY OTHER COMPLAINTS AND REPORS HE SLEPT OKAY. PATIENT IS WEAK AND REQUIRES 2-3 MAX ASSIST. PT CONSULTED. NOTED BLE AND SCROTUM EDEMA. PATIENT TAKE LASIX NORMALLY. PATIENT FROM [facility]. PATIENT IS OFTEN INCONTIENT OF BOWL/BLADDER. ASSOCIATE DIRECTOR REPORTED HE PULLED OUT HIS IV AND TOOKO OFF HIS TELE. RIGHT HAND IV TO INT. AM MEDS GIVEN. BREAKFAST TRAY AT BEDSIDE. AM BS WAS 69. TELE INPLACE. HEART RATE IRREGULAR BUT CONTROLED RATE IN THE 70'S. CARDS CONSULTED. HEAD TO TOE ASSESSMENT COMPLETE.
[2019-03-04 09:03] VITALS: BP 138/84; PULSE 72; TEMP 97.5
[2019-03-04] MEDS ORDERED: ASPIRIN E.C. 8181 MG PO (09:33)
[2019-03-04] MEDS ORDERED: PLAVIX 75MG TAB75 MG PO (09:37)
[2019-03-04] MEDS ORDERED: LEVAQUIN 5500 MG/TA1 PO (09:38)
--- NOTE | 2019-03-04 10:30 | NUR ---
US AT BEDSIDE
[2019-03-04 13:17] VITALS: BP 116/49; PULSE 47; TEMP 98.6
--- NOTE | 2019-03-04 13:25 | NUR ---
The patient is to discharge today, 03/04, back to [facility] for long-term care. Transportation was scheduled for 1430, via [facility]. GERALDO attempted to contact the patient's son, Doyle, to inform. GERALDO left him a voicemail. GERALDO contacted and informed the patient's son, Brandon, and informed his RN. They were both in agreeance to the time. No additional needs at this time.
[2019-03-04 13:34] VITALS: BP 116/49; PULSE 47; TEMP 98.6
[2019-03-04 13:51] VITALS: BP 116/49; PULSE 47; TEMP 98.6
--- NOTE | 2019-03-04 15:45 | NUR ---
[facility] VAN SERVICE ARRIVED. PATIENT DISCHARGING VIA WITH 3 ASSIST AND SIT TO STAND LIFT. GAVE INFO PACKET TO OVERLOCKER. ALREADY TALKED WITH NURSE FROM [facility]. IV DC'D. TELE OFF. PATIENT DISCHARGED.
== END 2019-03-04 15:45 | DRG 871 ==
LOC: COL.ER 12:40 → MEDICAL 14:20
PROVIDERS: Emergency Medicine; Physician Assistant; ADMIT Internal Medicine
DX: A41.9 Sepsis, unspecified organism (principal); I21.A1 Myocardial infarction type 2; N17.9 Acute kidney failure, unspecified; I50.30 Unspecified diastolic (congestive) heart failure; K21.9 Gastro-esophageal reflux disease without esophagitis; E78.5 Hyperlipidemia, unspecified; N40.0 Benign prostatic hyperplasia without lower urinary tract symptoms; R65.20 Severe sepsis without septic shock; F03.90 Unspecified dementia, unspecified severity, without behavioral disturbance, psychotic disturbance, mood disturbance, and anxiety; Z66 Do not resuscitate; R41.0 Disorientation, unspecified; R53.81 Other malaise; I48.91 Unspecified atrial fibrillation; I11.0 Hypertensive heart disease with heart failure; D64.9 Anemia, unspecified; E87.5 Hyperkalemia; F32.9 Major depressive disorder, single episode, unspecified; E11.9 Type 2 diabetes mellitus without complications; Z86.718 Personal history of other venous thrombosis and embolism; Z86.711 Personal history of pulmonary embolism; Z86.73 Personal history of transient ischemic attack (TIA), and cerebral infarction without residual deficits; Z79.84 Long term (current) use of oral hypoglycemic drugs; Z79.82 Long term (current) use of aspirin
CPT/HCPCS: 99223-AI; 99231-AI; 99233-AI; 99239; A4216; J0692; J1644; J1815; J1940; J1956; J2405; J7030

== ENCOUNTER 2019-03-15 12:44 | Observation (INO) | payer MEDICARE, OTHER ==
[~2019-03-15] VITALS: Ht 188 cm; Wt 119.5 kg
[~2019-03-15 12:44] MED LIST changes: +APRESOLINE 25MG25 MG PO; +ASPIRIN E.C. 8181 MG PO; +ATROVENT I0.2 MG/1 M IH; +ATROVENT NASAL15 ML NS; +BENEFIBER PO; +CLARITIN 1010 MG/TAB PO; +COLACE 100100 MG/CAP PO; +DIGESTIVE PROB1 EACH PO; +FLOMAX 0.40.4 MG/CAP PO; +GOOD SENSE400 MG/5 M PO; +HYGROTON 2525 MG/TAB PO; +IMODIUM 2MG CAPS2 MG PO; +JANUVIA50 MG PO; +LEVAQUIN 5500 MG/TA1 PO; +MELATONIN5 M1 SL; +PATANOL OPHTHALM5 ML OU; +PRILOTC PO; +SALINE 45 ML45 ML NS; +SINGULAIR 110 MG/TAB PO; +TIROSINT50 MC1 PO; +TYLENOL 8 HR PO
[2019-03-15 13:14] LABS: BASO # 0.1 (0.0-0.2); BASO % 0.4 % (0.0-2.0); EOS # 0.1 (0.0-0.7); EOS % 0.5 % (0-4.0); GRAN # 8.1 (1.4-6.5); GRAN % 72.7 % (42.2-75.2); HEMATOCRIT 38.6 % (42.0-52.0); HEMOGLOBIN 11.9 g/dl (13.5-18.0); MEAN CELL VOLUME 93 fl (80.0-100.0); MEAN CORPUSCULAR HEMOGLOBIN 29 pg (27.0-31.0); MEAN CORPUSCULAR HGB CONC 31 g/dl (33.0-37.0); MEAN PLATELET VOLUME 9.2 fl (7.4-10.4); MONO # 0.9 (0.1-0.6); PLATELET COUNT 412 K/mm3 (130-400); RED BLOOD COUNT 4.14 M/mm3 (4.20-5.60); REDCELL DISTRIBUTION WIDTH-CV 13.5 % (11.5-14.5)
[2019-03-15 13:18] LABS: INR 1.2 (0.8-3.0); PROTHROMBIN TIME 14.1 SECONDS (9.7-12.8)
[2019-03-15] MEDS ORDERED: WHEY PROTEIN IS1 POW PO (13:24)
[2019-03-15 13:25] LABS: ALANINE AMINOTRANSFERASE < 6 U/L (21-72); ALBUMIN 4.1 gm/dL (3.5-5.0); ALKALINE PHOSPHATASE 91 U/L (50-136); ANION GAP 11 mmol/L (7-16); AST,SGOT 16 U/L (15-37); BILIRUBIN,TOTAL 0.7 mg/dL (0.0-1.0); BLOOD UREA NITROGEN 25 mg/dL (9-20); C-REACTIVE PROTEIN 6.1 mg/dL (0.0-0.9); CALCIUM 9.3 mg/dL (8.4-10.2); CARBON DIOXIDE 27 mmol/L (22-30); CHLORIDE 103 mmol/L (98-107); CREATININE, serum 1.75 (0.66-1.25); GLUCOSE 370 mg/dL (74-106); POTASSIUM 4.8 mmol/L (3.4-5.0); SODIUM 140 mmol/L (137-145); TOTAL PROTEIN 9.1 gm/dL (6.4-8.2)
[2019-03-15 13:34] LABS: TROPONIN-I 0.035 ng/mL (0.000-0.035)
[2019-03-15] MEDS ORDERED: JANUVIA50 MG PO (13:40)
[2019-03-15] MEDS ORDERED: SENOKOT S 50 MG1 TAB PO (14:48)
[2019-03-15] MEDS ORDERED: TYLENOL 325MG325 MG PO (14:53)
[2019-03-15] MEDS ORDERED: ASPI325T6 PO (14:54)
[2019-03-15] MEDS ORDERED: LOTENSIN40 MG PO (14:55)
[2019-03-15] MEDS ORDERED: HYGROTON 2525 MG/TAB PO (14:55)
[2019-03-15] MEDS ORDERED: GLUCOTROL10 MG PO (14:56)
[2019-03-15] MEDS ORDERED: GLUCOPHAGE500 MG/TAB PO (14:58)
[2019-03-15] MEDS ORDERED: LEVAQUIN 5500 MG/TA1 PO (14:59)
[2019-03-15] MEDS ORDERED: IMODIUM 2MG CAPS2 MG PO (15:00)
[2019-03-15] MEDS ORDERED: HYTRIN10 M1 PO (15:00)
[2019-03-15 15:36] LABS: COLLECTION METHOD CLEAN CATCH
[2019-03-15 15:55] LABS: PH 6 (5-8); SQUAMOUS EPITHELIAL None Seen /hpf; URINE APPEARANCE Clear; URINE BACTERIA None Seen /hpf; URINE BILIRUBIN Negative (NEGATIVE); URINE BLOOD 1+ (NEGATIVE); URINE COLOR Yellow; URINE GLUCOSE 2+ (NEGATIVE); URINE KETONE Negative (NEGATIVE); URINE LEUKOCYTE ESTERASE Negative (NEGATIVE); URINE NITRATE Negative (NEGATIVE); URINE PROTEIN(semi-quant) Negative (NEGATIVE); URINE UROBILINOGEN Negative (NEGATIVE)
[2019-03-15 16:28] VITALS: BP 159/70; PULSE 73; TEMP 97.6
[2019-03-15] MEDS ORDERED: ARTIFICIAL TEAR15 M7 OP (17:57)
[2019-03-15] MEDS ORDERED: TEMOVATE0.052 TOP (18:02)
[2019-03-15] MEDS ORDERED: FERRO-TIME325 MG PO (18:05)
--- NOTE | 2019-03-15 19:21 | NUR ---
Pt arrived to room 311, he is alert but not oriented. Able to identify himself and the year only. Pt denies any pain at this time. His breathing is even and unlabored on RA. Pt has no SOB, coughing clear phlegm. Pt denies needs at this time. Call light and bed alarm in place. WIll continue to monitor.
[2019-03-15 19:42] VITALS: BP 113/45; PULSE 75; TEMP 99.4
--- NOTE | 2019-03-15 20:11 | NUR ---
Patients son called to check on him. He asked what was found about the patients tongue swelling. This nurse found no information about this symptom and discussed with the son what was done in the ER and plans to observe patient tonight. Son had no further questions at this time.
--- NOTE | 2019-03-15 21:30 | NUR ---
Patient alert oreinted to self, but not to place or time. Patient has IV in right forearm. Patient has a productive cough, repiratory panel negative.
[2019-03-15 23:38] VITALS: BP 132/67; PULSE 98; TEMP 97.7
[2019-03-16 03:40] VITALS: BP 150/65; PULSE 71; TEMP 98.2
[2019-03-16 06:54] LABS: BASO % 0.1 % (0.0-2.0); GRAN # 6.5 (1.4-6.5); GRAN % 82.3 % (42.2-75.2); HEMOGLOBIN 10.3 g/dl (13.5-18.0); LYMPH # 1.2 (1.2-3.4); LYMPH % 15.1 % (20.0-51.0); MEAN CELL VOLUME 94 fl (80.0-100.0); MEAN CORPUSCULAR HEMOGLOBIN 29 pg (27.0-31.0); MEAN CORPUSCULAR HGB CONC 31 g/dl (33.0-37.0); MEAN PLATELET VOLUME 9.5 fl (7.4-10.4); MONO # 0.2 (0.1-0.6); PLATELET COUNT 367 K/mm3 (130-400); RED BLOOD COUNT 3.56 M/mm3 (4.20-5.60); REDCELL DISTRIBUTION WIDTH-CV 13.4 % (11.5-14.5)
[2019-03-16 07:01] LABS: HEMATOCRIT 33.4 % (42.0-52.0)
[2019-03-16 07:04] LABS: CALCIUM 8.8 mg/dL (8.4-10.2); CREATININE, serum 1.89 (0.66-1.25); POTASSIUM 4.7 mmol/L (3.4-5.0)
[2019-03-16 07:48] VITALS: BP 137/53; PULSE 77; TEMP 98.5
--- NOTE | 2019-03-16 10:15 | NUR ---
Assessment complete. Patient lying in bed. States he does not want to eat breakfast. IV fluids infusing @75 ml/hr. IV site CD&I. Patient denies pain or discomft. He did not need his lidocaine patch and did not want his eye drops. He was repositioned in bed for comfort. Fall precautions are in place. No further needs were expressed. Call light within reach.
[2019-03-16 11:54] VITALS: BP 126/60; PULSE 69; TEMP 98
--- NOTE | 2019-03-16 14:51 | NUR ---
Initial visit; Patient thanked Sales Floor Manager for looking in on him. Sales Floor Manager offered God's blessings, patient returned the blessings.
[2019-03-16 16:43] VITALS: BP 127/53; PULSE 70; TEMP 98.4
--- NOTE | 2019-03-16 16:43 | NUR ---
Offset Duplicating Machine Operator met with patient to discuss discharge planning. Patient had difficulty answering questions due to AMS but states he lives in a shelter. GERALDO contacted [facility], Jorge (ph#[phone]) who advised patient lives at [facility]. Jorge could not recall who patient's primary care provider is. Jorge reports patient uses a wheelchair all the time. Jorge states the discharge plan is for patient to return to [facility]. GERALDO presented Patient Preference Form and Jorge selected [facility] and provided verbal signature. GERALDO placed form on patient chart. GERALDO contacted [facility] and faxed referral. SW to continue to follow.
--- NOTE | 2019-03-16 18:21 | NUR ---
Patient has had a good day. Still afebrile. No complaints of pain. Seems less confused than yesterday, more conversational. Ultrasound was done on scrotum, CT as well. Denied pain all day. No further needs were expressed. Call light in reach.
[2019-03-16 20:50] VITALS: BP 115/65; PULSE 68; TEMP 98.6
[2019-03-16 22:49] VITALS: BP 120/52; PULSE 63; TEMP 98
--- NOTE | 2019-03-16 23:35 | NUR ---
PATIENT DOING WELL TONIGHT. ALERT AND PARTIALLY ORIENTED. DENIES PAIN. SWELLING TO SCROTUM NOTED. PATIENT WEARING BRIEF AND INCONTINENT PAD. INT TO R AC FLUSHED AND PATENT. WBG HIGH AT 345, PRN NOVOLOG AND LEVEMIR GIVEN. TOOK SCHEDULED MEDICATIONS PRESCRIBED. BILATERAL LOWER EXTREMITY SWELLING NOTED. NO FURTHER NEEDS AT THIS TIME. WILL CONTINUE TO MONITOR.
[2019-03-17 03:16] VITALS: BP 129/55; PULSE 62; TEMP 98.4
[2019-03-17 06:20] LABS: BASO % 0.2 % (0.0-2.0); GRAN # 10.2 (1.4-6.5); GRAN % 77.3 % (42.2-75.2); HEMOGLOBIN 10.3 g/dl (13.5-18.0); LYMPH # 2.1 (1.2-3.4); LYMPH % 15.5 % (20.0-51.0); MEAN CELL VOLUME 93 fl (80.0-100.0); MEAN CORPUSCULAR HEMOGLOBIN 29 pg (27.0-31.0); MEAN CORPUSCULAR HGB CONC 31 g/dl (33.0-37.0); MEAN PLATELET VOLUME 9.4 fl (7.4-10.4); MONO # 0.9 (0.1-0.6); MONO % 6.5 % (1.7-9.3); PLATELET COUNT 415 K/mm3 (130-400); RED BLOOD COUNT 3.59 M/mm3 (4.20-5.60); REDCELL DISTRIBUTION WIDTH-CV 13.5 % (11.5-14.5)
[2019-03-17 06:21] LABS: HEMATOCRIT 33.4 % (42.0-52.0)
[2019-03-17 06:46] LABS: CALCIUM 8.8 mg/dL (8.4-10.2); CREATININE, serum 2.33 (0.66-1.25); POTASSIUM 4.2 mmol/L (3.4-5.0)
[2019-03-17 08:36] VITALS: BP 144/61; PULSE 65; TEMP 98
[2019-03-17] MEDS ORDERED: LEVEMIR100 U/ML SQ (09:47)
[2019-03-17] MEDS ORDERED: NOVOLOG 100U100 U/M1 SQ (09:48)
[2019-03-17] MEDS ORDERED: LASIX 20MG TABL20 MG PO (09:49)
[2019-03-17] MEDS ORDERED: RT ALBUTER2.5 MG/0.5 IH (09:52)
--- NOTE | 2019-03-17 11:14 | NUR ---
Pt presents in bed A&O to self but thinks he is at the motel. Pt re-oriented to his room and the fact that he is in the hospital. Pt is incontinent to bladder and bowels. Pt is able to use call light as evidenced by his use prior to this automobile service writer's note. Pt is able to make wants/needs known. Pt bedside table next to his bed with beverages within arms reach and call light secured to Pt's bedsheets. This automobile service writer shows Pt how to turn on the TV and the Pt is peacefully watching the news at this time with no s/s of distress noted.
[2019-03-17 12:15] VITALS: BP 141/67; PULSE 50; TEMP 97.9
--- NOTE | 2019-03-17 12:32 | NUR ---
Pt report called into [facility] and this advertising copy writer gave report to Rosetta LU
[2019-03-17 12:35] VITALS: BP 141/67; PULSE 50; TEMP 97.9
--- NOTE | 2019-03-17 13:48 | NUR ---
[employer] Representative was notified that patient ready to be discharged today. GERALDO contacted [facility] and established transportation time for 1300. GERALDO provided update to Shanae LU. GERALDO contacted patient's son, Jorge to notify him of discharge to [facility] and Jorge is in agreeance. GERALDO faxed discharge orders to TABITHA Sargent at [facility]. No additional concerns at this time.
== END 2019-03-17 13:50 ==
LOC: COL.ER 12:44 → MEDICAL 13:59 → COL.ER 13:59 → MEDICAL 13:59
PROVIDERS: Emergency Medicine; Physician Assistant; ADMIT Hospitalist
DX: E85.4 Organ-limited amyloidosis (principal); J96.01 Acute respiratory failure with hypoxia; I12.9 Hypertensive chronic kidney disease with stage 1 through stage 4 chronic kidney disease, or unspecified chronic kidney disease; E11.22 Type 2 diabetes mellitus with diabetic chronic kidney disease; N18.3 Chronic kidney disease, stage 3 (moderate); N17.9 Acute kidney failure, unspecified; I47.1 Supraventricular tachycardia; I25.2 Old myocardial infarction; F03.90 Unspecified dementia, unspecified severity, without behavioral disturbance, psychotic disturbance, mood disturbance, and anxiety; D64.9 Anemia, unspecified; E03.9 Hypothyroidism, unspecified; N40.0 Benign prostatic hyperplasia without lower urinary tract symptoms; E78.5 Hyperlipidemia, unspecified; F32.9 Major depressive disorder, single episode, unspecified; Z86.73 Personal history of transient ischemic attack (TIA), and cerebral infarction without residual deficits; Z99.81 Dependence on supplemental oxygen; Z79.84 Long term (current) use of oral hypoglycemic drugs; Z79.02 Long term (current) use of antithrombotics/antiplatelets; Z79.82 Long term (current) use of aspirin; Z86.711 Personal history of pulmonary embolism; Z86.718 Personal history of other venous thrombosis and embolism; Z79.1 Long term (current) use of non-steroidal anti-inflammatories (NSAID); Z88.0 Allergy status to penicillin; Z91.048 Other nonmedicinal substance allergy status
CPT/HCPCS: 99232-AI; A4216; G0378; J0696; J1644; J1650; J1815; J2930; J7030; J7040; J7512